=== PATIENT | male | born 1960 | race Two or more races ===

== ENCOUNTER 2022-03-03 20:37 | Emergency (ER) | payer OTHER ==
[~2022-03-03] VITALS: Ht 188 cm; Wt 122.5 kg
== END 2022-03-03 22:27 | disposition home or self-care (01) ==
LOC: ER 20:37
DX: M54.31 Sciatica, right side (principal)

== ENCOUNTER → 2023-03-30 | Emergency (ER) | payer OTHER ==
[~2023-03-30] VITALS: Ht 188 cm; Wt 124.7 kg
== END | disposition left against medical advice (07) ==
LOC: ER 05:54
DX: Z53.21 Procedure and treatment not carried out due to patient leaving prior to being seen by health care provider (principal)